=== PATIENT | male | born 2000 | race Caucasian/White ===

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

== ENCOUNTER 2022-08-09 08:00 | Outpatient (CLI) | payer OTHER ==
[2022-08-10 00:38] LABS: CHLAMYDIA TRACHOMATIS DNA NEGATIVE (NEGATIVE); NEISSERIA GONORRHOEAE DNA NEGATIVE (NEGATIVE)
== END 2022-08-09 23:59 | disposition home or self-care (01) ==
LOC: LAB.N 08:00
PROVIDERS: ATTEND Registered Nurse
DX: Z11.3 Encounter for screening for infections with a predominantly sexual mode of transmission (principal)
CPT/HCPCS: 87491; 87591; 87661